=== PATIENT | female | born 1945 | race Caucasian/White ===

== ENCOUNTER → 2023-06-22 | Day surgery (SDC) | payer OTHER ==
[~2023-06-22] MED LIST: ADULT LOW DOSE81 M1 PO; CEPHALEXIN250 MG PO; GLIPIZIDE XL2.5 MG PO; GLUMETZA500 MG PO; GORDON'S VITE A75 GM PO; HORIZANT300 MG PO; KEFLEX250 MG PO; LEXAP PO; LOTREL 10-20 M1 EACH PO; MELOXICAM15 MG PO; SYNTHROID50 MCG PO; TRAZO PO; ULTRACET PO; ZOCOR20 MG PO
== END | disposition home or self-care (01) ==
LOC: ADM 06-16 07:30 → CIR.AMB 05:30
PROVIDERS: ATTEND Obstetrics & Gynecology Gynecology
DX: N32.81 Overactive bladder (principal); N39.41 Urge incontinence; Z20.822 Contact with and (suspected) exposure to COVID-19; Z91.011 Allergy to milk products
CPT/HCPCS: 64585; 64590; 95972; C1767; C1778